=== PATIENT | male | born 1960 | race Caucasian/White ===

== ENCOUNTER 2016-08-13 00:04 | Observation (INO) | payer OTHER ==
[2016-08-13] MEDS ORDERED: NITROGLYCERIN SUBLINGUAL 1/150 0.4 MG TAB SL ONE (00:14)
[2016-08-13] MEDS ORDERED: ASPIRIN 81 MG CHEWABLE TABLETS PO ONE (00:14)
[2016-08-13] MEDS ORDERED: METOPROLOL TARTRATE 25 MG TABLET (FP) PO ONE (00:15)
--- NOTE | 2016-08-13 00:20 | PDOC ---
History of Present Illness - General Chief Complaint: Chest Pain Stated Complaint: CHEST PAIN Time Seen by Provider: 08/13/16 00:14 History Source: Patient Exam Limitations: No Limitations - History of Present Illness Initial Comments: 08/13/16 00:15 55 Y M DM, 1 HOUR OF DULL, CHEST PRESSURE (LIKE SOME ONE HUGGING ME). MILD DYSPMEA BUT NOT CHANGED BY EXERTION. IN ED, IN NAD. HD STABLE (SL[facility] TACHY) STS NO HX OF SIMILAR PAINS. NO HEARTBURN OR BURPING. Past History - Past Medical History Allergies/Adverse Reactions: Allergies Allergy/AdvReac Type Severity Reaction Status Date / Time venom-honey bee Allergy Verified 06/26/15 12:02 [bee venom (honey bee)] Home Medications: Ambulatory Orders Atorvastatin Ca [Lipitor -] 10 mg PO DAILY 06/26/15 Metformin HCl 500 mg PO BID 06/26/15 Sitagliptin Phosphate [Januvia] 100 mg PO DAILY 06/26/15 Diabetes: Yes HTN: Yes Hypercholesterolemia: Yes - Immunization History Immunization Up to Date: No - Psycho/Social/Smoking Cessation Hx Anxiety: No Suicidal Ideation: No Smoking History: Never smoked Hx Alcohol Use: No Drug/Substance Use Hx: No Review of Systems - Review of Systems Able to Perform ROS?: Yes Is the patient limited Algerian proficient: No Constitutional: No: Symptoms Reported HEENTM: No: Symptoms Reported Respiratory: No: Symptoms reported Cardiac (ROS): No: Symptoms Reported ABD/GI: No: Symptoms Reported : No: Symptoms Reported Neurological: No: Symptoms reported *Physical Exam - Vital Signs Last Vital Signs Temp Pulse Resp BP Pulse Ox 99.3 F 110 H 20 129/83 100 08/13/16 00:10 08/13/16 01:14 08/13/16 01:14 08/13/16 01:14 08/13/16 01:14 - Physical Exam General Appearance: Yes: Nourished, Appropriately Dressed. No: Apparent Distress HEENT: positive: Normal ENT Inspection Neck: positive: Supple. negative: Tender, Carotid bruit Respiratory/Chest: positive: Lungs Clear, Normal Breath Sounds. negative: Respiratory Distress Cardiovascular: positive: Regular Rhythm, Regular Rate, Tachycardia Gastrointestinal/Abdominal: positive: Normal Bowel Sounds, Soft. negative: Tender Musculoskeletal: positive: Normal Inspection. negative: Vertebral Tenderness Integumentary: positive: Normal Color. negative: Rash Neurologic: positive: Fully Oriented, Alert, Normal Mood/Affect, Normal Response , Motor Strength 5/5 Heart Score/ECG Review - History History: Moderately suspicious - Electrocardiogram EKG: Normal - Age Age: 45-65 - Risk Factors Risk Factors Heart Score: Yes Hx Diabetes Based on the list above the patient has:: 1-2 risk factors - ECG Intrepretation Rhythm: Regular Rhythm - Kimball Kimball: Normal - P and MT Prominent R with upright T in V1 (true posterior OK): No - QRS Q Wave Present: Yes ED Treatment Course - LABORATORY CBC & Chemistry Diagram: 08/13/16 00:14 08/13/16 00:14 - ADDITIONAL ORDERS Additional order review: Laboratory Results 08/13/16 08/13/16 00:14 00:14 INR 1.10 Sodium 137 Potassium 4.3 Chloride 99 Carbon Dioxide 26 Anion Gap 12 BUN 18 Creatinine 1.2 Creat Clearance w eGFR > 60 Random Glucose 335 H* Calcium 8.5 Magnesium 1.3 L Total Bilirubin 0.8 AST 18 ALT 42 Alkaline Phosphatase 53 Creatine Kinase 70 Troponin I < 0.02 Total Protein 6.9 Albumin 4.1 08/13/16 00:14 RBC 4.30 MCV 89.0 MCHC 35.2 RDW 12.7 MPV 7.6 Neutrophils % 75.3 Lymphocytes % 14.3 Monocytes % 8.5 Eosinophils % 1.4 Basophils % 0.5 - RADIOLOGY Radiology Studies Ordered: Category Date Time Status CHEST X-RAY PORTABLE* [RAD] Stat Radiology 08/13/16 00:14 Taken - Medications Given in the ED: ED Medications Discontinued Medications Generic Name Dose Route Start Last Admin Trade Name Danyq PRN Reason Stop Dose Admin Aspirin 162 mg 08/13/16 00:14 08/13/16 00:33 Asa - PO 08/13/16 00:15 162 mg ONCE ONE Administration Metoprolol Tartrate 25 mg 08/13/16 00:15 08/13/16 00:29 Lopressor - PO 08/13/16 00:16 25 mg ONCE ONE Administration Nitroglycerin 0.4 mg 08/13/16 00:14 08/13/16 00:29 Nitrostat - SL 08/13/16 00:15 0.4 mg ONCE ONE Administration Progress Note - Progress Note Progress Note: CHEST PAIN SUSP FOR ACS ADMIT OBSERVATION D/W PMD *DC/Admit/Observation/Transfer Diagnosis at time of Disposition: Chest pain, rule out acute myocardial infarction - Discharge Dispostion Condition at time of disposition: Stable Admit: Yes
[2016-08-13] MEDS ORDERED: NITROGLYCERIN SUBLINGUAL 1/150 0.4 MG TAB ONE (00:27)
[2016-08-13] MEDS ORDERED: METOPROLOL TARTRATE 50 MG TABLET (FP) ONE (00:27)
[2016-08-13 00:53] LABS: BASOPHIL 0.5 % (0-2.0); EOSINOPHIL 1.4 % (0-4.5); MCH 31.3 pg (25.7-33.7); MCHC 35.2 g/dl (32.0-35.9); MEAN PLT VOLUME 7.6 fl (7.5-11.1); NEUTROPHILS 75.3 % (42.8-82.8); PLATELET COUNT 177 K/MM3 (134-434); RDW 12.7 % (11.9-15.9); WHITE BLOOD COUNT 12.4 K/mm3 (4.0-10.0)
[2016-08-13 01:04] LABS: INR 1.1 (0.82-1.09); PROTHROMBIN TIME (PATIENT) 12.1 SEC (9.98-11.88)
[2016-08-13 01:17] LABS: ALBUMIN 4.1 g/dl (3.4-5.0); ANION GAP 12 (8-16); BILIRUBIN,TOTAL 0.8 mg/dL (0.2-1.0); CALCIUM 8.5 mg/dL (8.5-10.1); CO2 26 mmol/L (21-32); CREATININE 1.2 mg/dL (0.7-1.3); MAGNESIUM 1.3 mg/dL (1.8-2.4); SGOT/AST 18 U/L (15-37); SGPT/ALT 42 U/L (12-78); TOT PROT 6.9 g/dl (6.4-8.2)
[2016-08-13 01:19] LABS: ALK PHOS 53 U/L (45-117); TROPONIN I < 0.02 ng/ml (0.00-0.05)
[2016-08-13 01:28] LABS: GLUCOSE,RANDOM 335 mg/dL (74-106)
[2016-08-13] MEDS ORDERED: HYDROmorphone HCL CARPU-JECT 2 MG/1 ML DISP.SYRIN ONE (02:05)
[2016-08-13] MEDS ORDERED: NITROGLYCERIN SUBLINGUAL 1/150 0.4 MG TAB SL PRN (02:17)
[2016-08-13 03:47] VITALS: BMI 32.6
[2016-08-13] MEDS ORDERED: ACETAMINOPHEN 325 MG TABLET (FP) ONE (07:10)
[2016-08-13] MEDS: INSULIN SLIDING SCALE (NOVOLOG) 1 VIAL SQ SCH ×4 (07:17→22:15)
--- NOTE | 2016-08-13 07:50 | HP ---
CHIEF COMPLAINT: chest pain PCP: Dr Maza HISTORY OF PRESENT ILLNESS: Patient is a 55 y/o male with a past medical history of hypertension, hyperlipidemia, NIDDM. Patient reports awakening early this a.m.with chest pressure and dyspnea upon exertion. Patient describes a pressure as a squeezing sensation to the entire chest,he reports attempting to ambulate at home he noted the dyspnea upon exertion worsened. Patient denies any syncopal episode.patient reports after the of his sister ( prolonged QTC) he was evaluated by a environmental compliance manager 15 years ago, treadmill stress test was negative as per the patient. As a result, he sought evaluation in the emergency department. patient reports intermittent episodes of chest pressure that resolved spontaneously on its own. ER course was notable for: (1) EKG NSR, normal axis, t wave inversion on Lead III (2) troponin 1 WNL (3)nitroglycerin given in ED with relief of chest discomfort Recent Travel:none PAST MEDICAL HISTORY:hypertension hyperlipidemia NIDDM PAST SURGICAL HISTORY: none Social History: none Smoking: none Alcohol:none Drugs: none Family History: father leukemia mother hypertension sister prolonged QTC Allergies venom-honey bee [bee venom (honey bee)] Allergy (Verified 06/26/15 12:02) HOME MEDICATIONS: Home Medications Medication Instructions Recorded Atorvastatin Ca [Lipitor -] 10 mg PO DAILY 06/26/15 Metformin HCl 500 mg PO BID 06/26/15 Sitagliptin Phosphate [Januvia] 100 mg PO DAILY 06/26/15 REVIEW OF SYSTEMS CONSTITUTIONAL: Absent: fever, chills, diaphoresis, generalized weakness, malaise, loss of appetite, weight change HEENT: Absent: rhinorrhea, nasal congestion, throat pain, throat swelling, difficulty swallowing, mouth swelling, ear pain, eye pain, visual changes CARDIOVASCULAR: Absent: chest pain, syncope, palpitations, irregular heart rate, lightheadedness , peripheral edema RESPIRATORY: Absent: cough, shortness of breath, dyspnea with exertion, orthopnea, wheezing, stridor, hemoptysis GASTROINTESTINAL: Absent: abdominal pain, abdominal distension, nausea, vomiting, diarrhea, constipation, melena, hematochezia GENITOURINARY: Absent: dysuria, frequency, urgency, hesitancy, hematuria, flank pain, genital pain MUSCULOSKELETAL: Absent: myalgia, arthralgia, joint swelling, back pain, neck pain SKIN: Absent: rash, itching, pallor HEMATOLOGIC/IMMUNOLOGIC: Absent: easy bleeding, easy bruising, lymphadenopathy, frequent infections ENDOCRINE: Absent: unexplained weight gain, unexplained weight loss, heat intolerance, cold intolerance NEUROLOGIC: Absent: headache, focal weakness or paresthesias, dizziness, unsteady gait, seizure, mental status changes, bladder or bowel incontinence PSYCHIATRIC: Absent: anxiety, depression, suicidal or homicidal ideation, hallucinations. PHYSICAL EXAMINATION Vital Signs - 24 hr 08/13/16 08/13/16 03:00 07:47 Temperature 98.6 F 99.6 F Pulse Rate 88 91 H Respiratory 18 18 Rate Blood Pressure 136/85 151/86 O2 Sat by Pulse 100 97 Oximetry (%) GENERAL: Awake, alert, and fully oriented, in no acute distress. HEAD: Normal with no signs of trauma. EYES: Pupils equal, round and reactive to light, extraocular movements intact, sclera anicteric, conjunctiva clear. No lid lag. EARS, NOSE, THROAT: Ears normal, nares patent, oropharynx clear without exudates. Moist mucous membranes. NECK: Normal range of motion, supple without lymphadenopathy, JVD, or masses. LUNGS: Breath sounds equal, clear to auscultation bilaterally. No wheezes, and no crackles. No accessory muscle use. HEART: Regular rate and rhythm, normal S1 and S2, 3/6 systolic murmur, no rub or gallop. ABDOMEN: Soft, nontender, not distended, normoactive bowel sounds, no guarding, no rebound, no masses. No hepatomegaly or splenomegaly. MUSCULOSKELETAL: Normal range of motion at all joints. No bony deformities or tenderness. No CVA tenderness. UPPER EXTREMITIES: 2+ pulses, warm, well-perfused. No cyanosis. No clubbing. No peripheral edema. LOWER EXTREMITIES: 2+ pulses, warm, well-perfused. No calf tenderness. No peripheral edema. NEUROLOGICAL: Cranial nerves II-XII intact. Normal speech. Normal gait. PSYCHIATRIC: Cooperative. Good eye contact. Appropriate mood and affect. SKIN: Warm, dry, normal turgor, no rashes or lesions noted, normal capillary refill. Laboratory Results - last 24 hr 08/13/16 07:04 POC Glucometer 322 CBC WBC 8.7 K/mm3 (4.0-10.0) 08/13/16 10:00 RBC 4.56 M/mm3 (4.00-5.60) 08/13/16 10:00 Hgb 14.0 GM/dl (11.7-16.9) 08/13/16 10:00 Hct 40.8 % (35.4-49) 08/13/16 10:00 MCV 89.3 fl (80-96) 08/13/16 10:00 MCHC 34.4 g/dl (32.0-35.9) 08/13/16 10:00 RDW 11.8 % (11.9-15.9) L 08/13/16 10:00 Plt Count 175 K/MM3 (134-434) 08/13/16 10:00 MPV 7.4 fl (7.5-11.1) L 08/13/16 10:00 Neutrophils % 67.9 % (42.8-82.8) 08/13/16 10:00 Lymphocytes % 20.8 % (8-40) 08/13/16 10:00 Monocytes % 6.7 % (3.8-10.2) 08/13/16 10:00 Eosinophils % 1.5 % (0-4.5) 08/13/16 10:00 Basophils % 3.1 % (0-2.0) H 08/13/16 10:00 CMP Sodium 132 mmol/L (136-145) L 08/13/16 10:00 Potassium 4.3 mmol/L (3.5-5.1) 08/13/16 10:00 Chloride 99 mmol/L (98-107) 08/13/16 10:00 Carbon Dioxide 27 mmol/L (22-28) 08/13/16 10:00 Anion Gap 6 (8-16) L 08/13/16 10:00 BUN 15 mg/dl (7-18) 08/13/16 10:00 Creatinine 1.0 mg/dl (0.6-1.3) 08/13/16 10:00 Creat Clearance w eGFR > 60 (>60) 08/13/16 10:00 POC Glucometer 347 UNITS (()) 08/13/16 11:38 Random Glucose 336 mg/dl (74-106) H* 08/13/16 10:00 Calcium 9.0 mg/dl (8.4-10.2) 08/13/16 10:00 Phosphorus 3.2 mg/dl (2.5-4.6) 08/13/16 10:00 Magnesium 2.0 mg/dL (1.8-2.4) D 08/13/16 10:00 Total Bilirubin 1.4 mg/dl (0.2-1.0) H 08/13/16 10:00 AST 25 U/L (10-42) 08/13/16 10:00 ALT 29 U/L (10-40) 08/13/16 10:00 Alkaline Phosphatase 46 U/L (32-92) 08/13/16 10:00 Creatine Kinase 45 IU/L (38-174) 08/13/16 07:00 Troponin I < 0.03 ng/ml (0.03-0.50) L 08/13/16 07:00 Total Protein 6.7 g/dl (6.4-8.3) 08/13/16 10:00 Albumin 4.0 g/dl (3.5-5.0) 08/13/16 10:00 Triglycerides 253 mg/dl (35-160) H 08/13/16 10:00 Cholesterol 144 mg/dl 08/13/16 10:00 Total LDL Cholesterol 58 mg/dl 08/13/16 10:00 HDL Cholesterol 35 mg/dl (29-89) 08/13/16 10:00 ASSESSMENT/PLAN: 1) cardiology Chest pain R/O ACS - Continuous cardiac monitoring no dysrhythmias noted - Repeat EKG this a.m. no ischemic changes - Department 3 WNL - Pending echo - Patient does report a squeezing sensation, concern for unstable angina, case discussed with environmental compliance manager Dr Rae, patient will be evaluated by cardiology today Hypertension - Continue losartan Hyperlipidemia - pending lipid profile continue lipitor 2) endo NIDDM - Hold metformin and Januvia fingersticks noted to be elevated start sliding scale with regular insulin coverage - pending hemoglobin A1c F/E/N - low-sodium low-cholesterol diabetic diet - Replete magnesium PPX - oob - protonix dispo: requires 24-hour telemetry observation Visit type - Emergency Visit Emergency Visit: Yes ED Registration Date: 08/13/16 Care time: The patient presented to the Emergency Department on the above date and was hospitalized for further evaluation of their emergent condition. - New Patient This patient is new to me today: Yes Date on this admission: 08/13/16 - Critical Care Critical Care patient: Yes Total Critical Care Time (in minutes): 45 Critical Care Statement: The care of this patient involved high complexity decision making to prevent further life threatening deterioration of the patient 's condition and/or to evalute & treat vital organ system(s) failure or risk of failure.
[2016-08-13] MEDS ORDERED: MAGNESIUM SULFATE 2 GM in SODIUM CHLORIDE 100 ML IVPB ONE (07:57)
[2016-08-13] MEDS ORDERED: ACETAMINOPHEN 325 MG TABLET (FP) PO PRN (08:01)
[2016-08-13] MEDS ORDERED: MAGNESIUM SULF 50% (8.12 MEQ/2 ML-1 GM VIAL) IVPB ONE (08:45)
[2016-08-13 09:11] LABS: CPK(DFH) 45 IU/L (38-174)
[2016-08-13 09:27] LABS: TROPONIN I (DFP) < 0.03 ng/ml (0.03-0.50)
[2016-08-13] MEDS ORDERED: ASPIRIN 325 MG TABLET PO SCH (10:00)
[2016-08-13 11:03] LABS: BASOPHIL 3.1 % (0-2.0); EOSINOPHIL 1.5 % (0-4.5); MCH 30.8 pg (25.7-33.7); MCHC 34.4 g/dl (32.0-35.9); MEAN CELL VOLUME 89.3 fl (80-96); MEAN PLT VOLUME 7.4 fl (7.5-11.1); NEUTROPHILS 67.9 % (42.8-82.8); PLATELET COUNT 175 K/MM3 (134-434); RDW 11.8 % (11.9-15.9); WHITE BLOOD COUNT 8.7 K/mm3 (4.0-10.0)
[2016-08-13 11:28] LABS: ALK PHOS 46 U/L (32-92); ANION GAP 6 (8-16); BILIRUBIN,TOTAL 1.4 mg/dl (0.2-1.0); CHOLESTEROL 144 mg/dl; CO2 27 mmol/L (22-28); PHOSPHOROUS 3.2 mg/dl (2.5-4.6); SGOT/AST 25 U/L (10-42); SGPT/ALT 29 U/L (10-40); TOT PROT 6.7 g/dl (6.4-8.3)
[2016-08-13 11:42] LABS: GLUCOSE,RANDOM 336 mg/dl (74-106)
[2016-08-13] MEDS: VALSARTAN 80 MG TABLET (UD) PO SCH (12:57)
[2016-08-13 14:55] LABS: CPK(DFH) 42 IU/L (38-174)
[2016-08-13 15:34] LABS: TROPONIN I (DFP) < 0.03 ng/ml (0.03-0.50)
--- NOTE | 2016-08-13 17:07 | EKG ---
Test Reason : Blood Pressure : / mmHG Vent. Rate : 115 BPM Atrial Rate : 115 BPM P-R Int : 144 ms QRS Dur : 086 ms QT Int : 318 ms P-R-T Axes : 017 006 022 degrees QTc Int : 439 ms SINUS TACHYCARDIA INFERIOR INFARCT , AGE UNDETERMINED ABNORMAL ECG NO PREVIOUS ECGS AVAILABLE Confirmed by MARILYN JASSO MD ([id number]) on 08/13/2016 5:06:58 PM Referred By: DR JUAREZ Confirmed By:MARILYN JASSO MD
[2016-08-13] MEDS ORDERED: INSULIN (NOVOLOG) ASPART 100 UNITS/ML 10ML VIAL ONE (17:31)
[2016-08-13 18:51] LABS: PH,URINE 5.5 (4.5-8); URINE APPEARANCE Clear; URINE BILIRUBIN Negative (NEGATIVE); URINE GLUCOSE (UA) 2+ (NEGATIVE); URINE KETONE Negative (NEGATIVE); URINE LEUK ESTERASE Negative (NEGATIVE); URINE NITRITE Negative (NEGATIVE); URINE PROTEIN Trace (NEGATIVE); URINE UROBILINOGEN 0.2 E.U/dl (0.2-1.0)
[2016-08-13 19:11] LABS: URINE BLOOD TRACE (NEGATIVE); URINE COLOR YELLOW
--- NOTE | 2016-08-13 20:21 | CON.CARD ---
Cardiology Consult (text) - Consultation Consultation Note: CC: CP 55 y/o male with a past medical history of hyperlipidemia, NIDDM p/w cp. One day of constant chest tightness worse with inspiration and with lying down. 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 Still with mild residual discomfort. No improvement with NTG. No ttp. No orthopnea, pnd, le edema, palps, dizziness, bleeding, transient neurologic symptoms. Allergies, but no recent viral illness. + cough. No f/c/s, n/v/d, congestion, rashes, headache, visual disturbances. PAST MEDICAL HISTORY:hypertension hyperlipidemia NIDDM PAST SURGICAL HISTORY: none Social History: none Smoking: never Alcohol:none Drugs: none Family History: father leukemia mother hypertension sister prolonged QTC Ambulatory Orders Atorvastatin Ca [Lipitor -] 10 mg PO DAILY 06/26/15 Metformin HCl 500 mg PO BID 06/26/15 Sitagliptin Phosphate [Januvia] 100 mg PO DAILY 06/26/15 Current Medications Acetaminophen (Tylenol -) 650 mg PO Q4H PRN PRN Reason: FEVER OR PAIN Aspirin (Asa -) 325 mg PO DAILY [facility] Last Admin: 08/13/16 09:50 Dose: 325 mg Atorvastatin Calcium (Lipitor -) 10 mg PO HS [facility] Insulin Aspart (Novolog Vial Sliding Scale -) 1 vial SQ ACHS [facility] PRN Reason: Protocol Last Admin: 08/13/16 17:16 Dose: 10 units Nitroglycerin (Nitrostat -) 0.4 mg SL Q5M PRN PRN Reason: FOR CHEST PAIN Valsartan (Diovan -) 80 mg PO DAILY [facility] Last Admin: 08/13/16 12:57 Dose: 80 mg Vital Signs - 24 hr 08/13/16 08/13/16 08/13/16 00:10 00:14 01:14 Temperature 99.3 F Pulse Rate 115 H Pulse Rate [ 110 H 110 H Apical] Respiratory 20 22 20 Rate Blood Pressure 153/98 Blood Pressure 155/92 129/83 [Arm] O2 Sat by Pulse 99 99 100 Oximetry (%) 08/13/16 08/13/16 08/13/16 02:15 03:00 07:47 Temperature 98.6 F 99.6 F Pulse Rate 88 91 H Pulse Rate [ 92 H Apical] Respiratory 18 18 18 Rate Blood Pressure 136/85 151/86 Blood Pressure 126/75 [Arm] O2 Sat by Pulse 100 100 97 Oximetry (%) 08/13/16 08/13/16 08/13/16 07:59 09:44 13:57 Temperature 99 F 98.7 F Pulse Rate 87 88 Pulse Rate [ Apical] Respiratory 18 18 20 Rate Blood Pressure 179/89 147/86 Blood Pressure [Arm] O2 Sat by Pulse 97 Oximetry (%) 08/13/16 15:59 Temperature Pulse Rate Pulse Rate [ Apical] Respiratory 20 Rate Blood Pressure Blood Pressure [Arm] O2 Sat by Pulse 97 Oximetry (%) Intake & Output 08/11/16 08/12/16 08/13/16 08/14/16 07:59 07:59 07:59 07:59 Intake Total 900 Balance 900 Weight 215 lb NAD, calm JVD mild elevation?, neck supple RRR nl s1, s2, 2/6 murmur at lsb. ctab nl effort + bs soft nt nd ext with trace edema. no c/c + dp/pt no carotid bruits aaox3 no jaundice, diaphoresis CBC, BMP 08/13/16 10:00 08/13/16 10:00 Laboratory Tests 08/13/16 08/13/16 08/13/16 00:14 07:00 10:00 Magnesium 2.0 D Total Bilirubin 1.4 H AST 25 ALT 29 Alkaline Phosphatase 46 Troponin I < 0.02 < 0.03 L Albumin 4.1 4.0 Triglycerides 253 H Cholesterol 144 Total LDL Cholesterol 58 HDL Cholesterol 35 08/13/16 14:30 Magnesium Total Bilirubin AST ALT Alkaline Phosphatase Troponin I < 0.03 L Albumin Triglycerides Cholesterol Total LDL Cholesterol HDL Cholesterol EKG 08/12: Sinus tach, 115 bpm. Bline inferior q waves EKG 08/13: SR, 84 bpm. Bline inferior q waves. Possible [place] elevation in aVR, and diffuse pr depression. J point elevation in limb leads. tele: SR with pvc's Echo here 07/2016: Mild LVH. Nl lv/rv size/fn. Ab diastolic inflow. CXR: wnl 55 y/o male with a past medical history of hyperlipidemia, NIDDM p/w cp. CP - CE's neg x 3. EKG without acute ischemic changes. Echo without RWMA. However , due to RF's for CAD would pursue inpatient stress test. - Sx's pleuritic and positional. EKG could be c/w pericarditis. Would get ESR, CRP to evaluate for pericarditis. - Diabetes control per pmd - con't asa (decrease to 81 mg/day), statin. CP not responsive to NTG, ok to stay maintain off anti-anginals for now unless stress test positive. HTN - Con't valsartan. maintain sys < 140. Would recommend adding thiazide diuretic. Monitor hyponatremia. - LVH and diastolic dysfunction on echo. Hl - LDL suppressed on low dose atorva
[2016-08-13] MEDS ORDERED: ATORVASTATIN CA 10 MG TABLET (FP) PO SCH (22:00)
[2016-08-13 22:30] LABS: URINE BACTERIA RARE /hpf (NEGATIVE); URINE RBC 0-3 /hpf (0-3); URINE WBC NONE SEEN (3-5)
[2016-08-14] MEDS: INSULIN SLIDING SCALE (NOVOLOG) 1 VIAL SQ SCH ×4 (06:53→13:03)
[2016-08-14] MEDS ORDERED: INSULIN (NOVOLOG) ASPART 100 UNITS/ML 10ML VIAL ONE ×2 (06:56→13:01)
[2016-08-14] MEDS: ASPIRIN 81 MG CHEWABLE TABLETS PO SCH ×2 (12:07→12:52)
[2016-08-14] MEDS: VALSARTAN 80 MG TABLET (UD) PO SCH ×2 (12:07→12:51)
[2016-08-14] MEDS: CHLORTHALIDONE 25 MG TABLET PO SCH ×2 (12:07→13:00)
--- NOTE | 2016-08-14 12:40 | EKG ---
Test Reason : Blood Pressure : / mmHG Vent. Rate : 084 BPM Atrial Rate : 084 BPM P-R Int : 162 ms QRS Dur : 088 ms QT Int : 356 ms P-R-T Axes : 045 009 017 degrees QTc Int : 420 ms NORMAL SINUS RHYTHM INFERIOR INFARCT (CITED ON OR BEFORE 12-AUG-2016) WHEN COMPARED WITH ECG OF 12-AUG-2016 23:57, NO SIGNIFICANT CHANGE WAS FOUND Confirmed by MD HOLDEN MARJORY ([id number]) on 08/14/2016 12:40:30 PM Referred By: MD BREWER Confirmed By:DYLAN HOLDEN MD
[2016-08-14 14:05] LABS: CALCIUM 9.2 mg/dl (8.4-10.2)
[2016-08-14] MEDS ORDERED: glyBURIDE 5 MG TABLET (UD) PO ONE (14:30)
[2016-08-14] MEDS ORDERED: glyBURIDE 2.5 MG TABLET (FP) PO ONE (14:30)
--- NOTE | 2016-08-14 14:42 | PN ---
Progress Note (short form) - Note Progress Note: CC: CP S: No cp, palps, dizziness, sob. stress test today. Vital Signs - 24 hr 08/13/16 08/13/16 08/13/16 15:59 22:54 23:00 Temperature 99.3 F Pulse Rate 107 H Respiratory 20 18 Rate Blood Pressure 153/86 O2 Sat by Pulse 97 97 97 Oximetry (%) 08/14/16 08/14/16 08/14/16 06:00 06:31 07:00 Temperature 97.8 F Pulse Rate 76 Respiratory 19 19 Rate Blood Pressure 134/72 O2 Sat by Pulse 98 98 Oximetry (%) 08/14/16 09:18 Temperature Pulse Rate Respiratory Rate Blood Pressure 131/97 O2 Sat by Pulse Oximetry (%) Intake & Output 08/12/16 08/13/16 08/14/16 08/15/16 07:59 07:59 07:59 07:59 Intake Total 900 Balance 900 Weight 215 lb NAD, calm JVD mild elevation?, neck supple RRR nl s1, s2, 2/6 murmur at lsb. ctab nl effort + bs soft nt nd ext with trace edema. no c/c + dp/pt no carotid bruits aaox3 no jaundice, diaphoresis CBC, BMP 08/13/16 10:00 08/14/16 13:20 Laboratory Tests 08/14/16 08/14/16 13:20 13:20 ESR 45 H C-Reactive Protein 6.7 H EKG 08/12: Sinus tach, 115 bpm. Bline inferior q waves EKG 08/13: SR, 84 bpm. Bline inferior q waves. Possible [place] elevation in aVR, and diffuse pr depression. J point elevation in limb leads. tele: SR with pvc's Echo here 07/2016: Mild LVH. Nl lv/rv size/fn. Ab diastolic inflow. stress test here 07/2016: 9 METS, Asx, no ekg changes. small mild reversible inf perf defect with mild inferoapical HK CXR: wnl 55 y/o male with a past medical history of hyperlipidemia, NIDDM p/w cp. CP - CE's neg x 3. EKG without acute ischemic changes. Echo without RWMA. However , due to RF's --> stress test. --> + for mild ischemia/CAD. Would recommend medical management and close cardiology outpatient follow up. - Sx's pleuritic and positional. EKG could be c/w pericarditis. Would get ESR, CRP to evaluate for pericarditis. - Diabetes control per pmd - con't asa (decrease to 81 mg/day), statin. HTN - Con't valsartan. maintain sys < 140. Would recommend adding thiazide diuretic. Monitor hyponatremia. - LVH and diastolic dysfunction on echo. Hl - LDL suppressed on low dose atorva Would d/c on asa, atorvastatin, chlorthalidone, valsartan. F/u with my office 2 weeks. ADDENDUM: Inflammatory markers (ESR/CRP) came back positive. Spoke with patient on phone and CP has not recurred therefore did not treat for pericarditis. Has f/u with our office.
[2016-08-14 14:50] VITALS: BP 139/78; PULSE 95; TEMP 98.8
[2016-08-14 16:44] LABS: C-REACTIVE PROTEIN 6.7 MG/DL (0.00-0.3)
--- NOTE | 2016-08-21 07:49 | DS ---
Physical Exam: SUBJECTIVE: Patient seen and examined, patient reports feeling well, denies any chest pain or shortness of breath, patient is ambulatory at bedside pt denies any dyspnea upon exertion. OBJECTIVE: Patient is a 55 y/o male with a past medical history of hypertension , hyperlipidemia, NIDDM. Patient reports awakening early this a.m.with chest pressure and dyspnea upon exertion. Patient describes a pressure as a squeezing sensation to the entire chest,he reports attempting to ambulate at home he noted the dyspnea upon exertion worsened. Patient denies any syncopal episode.patient reports after the of his sister ( prolonged QTC) he was evaluated by a coconut boiler 15 years ago, treadmill stress test was negative as per the patient. As a result, he sought evaluation in the emergency department. patient reports intermittent episodes of chest pressure that resolved spontaneously on its own. ER course was notable for: (1) EKG NSR, normal axis, t wave inversion on Lead III (2) troponin 1 WNL (3)nitroglycerin given in ED with relief of chest discomfort PHYSICAL EXAM GENERAL: Awake, alert, and fully oriented, in no acute distress. HEAD: Normal with no signs of trauma. EYES: Pupils equal, round and reactive to light, extraocular movements intact, sclera anicteric, conjunctiva clear. No lid lag. EARS, NOSE, THROAT: Ears normal, nares patent, oropharynx clear without exudates. Moist mucous membranes. NECK: Normal range of motion, supple without lymphadenopathy, JVD, or masses. LUNGS: Breath sounds equal, clear to auscultation bilaterally. No wheezes, and no crackles. No accessory muscle use. HEART: Regular rate and rhythm, normal S1 and S2, 3/6 systolic murmur, no rub or gallop. ABDOMEN: Soft, nontender, not distended, normoactive bowel sounds, no guarding, no rebound, no masses. No hepatomegaly or splenomegaly. MUSCULOSKELETAL: Normal range of motion at all joints. No bony deformities or tenderness. No CVA tenderness. UPPER EXTREMITIES: 2+ pulses, warm, well-perfused. No cyanosis. No clubbing. No peripheral edema. LOWER EXTREMITIES: 2+ pulses, warm, well-perfused. No calf tenderness. No peripheral edema. NEUROLOGICAL: Cranial nerves II-XII intact. Normal speech. Normal gait. PSYCHIATRIC: Cooperative. Good eye contact. Appropriate mood and affect. SKIN: Warm, dry, normal turgor, no rashes or lesions noted, normal capillary refill. CBC WBC 8.7 K/mm3 (4.0-10.0) 08/13/16 10:00 RBC 4.56 M/mm3 (4.00-5.60) 08/13/16 10:00 Hgb 14.0 GM/dl (11.7-16.9) 08/13/16 10:00 Hct 40.8 % (35.4-49) 08/13/16 10:00 MCV 89.3 fl (80-96) 08/13/16 10:00 MCHC 34.4 g/dl (32.0-35.9) 08/13/16 10:00 RDW 11.8 % (11.9-15.9) L 08/13/16 10:00 Plt Count 175 K/MM3 (134-434) 08/13/16 10:00 MPV 7.4 fl (7.5-11.1) L 08/13/16 10:00 Neutrophils % 67.9 % (42.8-82.8) 08/13/16 10:00 Lymphocytes % 20.8 % (8-40) 08/13/16 10:00 Monocytes % 6.7 % (3.8-10.2) 08/13/16 10:00 Eosinophils % 1.5 % (0-4.5) 08/13/16 10:00 Basophils % 3.1 % (0-2.0) H 08/13/16 10:00 ESR 45 mm/hr (0-20) H 08/14/16 13:20 CMP Sodium 133 mmol/L (136-145) L 08/14/16 13:20 Potassium 5.3 mmol/L (3.5-5.1) H D 08/14/16 13:20 Chloride 99 mmol/L (98-107) 08/14/16 13:20 Carbon Dioxide 28 mmol/L (22-28) 08/14/16 13:20 Anion Gap 6 (8-16) L 08/14/16 13:20 BUN 17 mg/dl (7-18) 08/14/16 13:20 Creatinine 1.0 mg/dl (0.6-1.3) 08/14/16 13:20 Creat Clearance w eGFR > 60 (>60) 08/13/16 10:00 POC Glucometer 382 UNITS (()) 08/14/16 13:52 Random Glucose 413 mg/dl (74-106) H* D 08/14/16 13:20 Hemoglobin A1c % 10.7 % (4.8-6.0) H 08/13/16 10:00 Calcium 9.2 mg/dl (8.4-10.2) 08/14/16 13:20 Phosphorus 3.2 mg/dl (2.5-4.6) 08/13/16 10:00 Magnesium 2.0 mg/dL (1.8-2.4) D 08/13/16 10:00 Total Bilirubin 1.4 mg/dl (0.2-1.0) H 08/13/16 10:00 AST 25 U/L (10-42) 08/13/16 10:00 ALT 29 U/L (10-40) 08/13/16 10:00 Alkaline Phosphatase 46 U/L (32-92) 08/13/16 10:00 Creatine Kinase 42 IU/L (38-174) 08/13/16 14:30 Troponin I < 0.03 ng/ml (0.03-0.50) L 08/13/16 14:30 C-Reactive Protein 6.7 MG/DL (0.00-0.3) H 08/14/16 13:20 Total Protein 6.7 g/dl (6.4-8.3) 08/13/16 10:00 Albumin 4.0 g/dl (3.5-5.0) 08/13/16 10:00 Triglycerides 253 mg/dl (35-160) H 08/13/16 10:00 Cholesterol 144 mg/dl 08/13/16 10:00 Total LDL Cholesterol 58 mg/dl 08/13/16 10:00 HDL Cholesterol 35 mg/dl (29-89) 08/13/16 10:00 Laboratory Tests 08/13/16 08/13/16 08/13/16 00:14 07:00 14:30 Troponin I < 0.02 < 0.03 L < 0.03 L HOSPITAL COURSE: Date of Admission:08/13/16 Date of Discharge: 08/21/16 Minutes to complete discharge: 45 Discharge Summary Reason For Visit: CHEST PAIN Condition: Stable - Instructions Diet, Activity, Other Instructions: resume, low sodium diabetic diet continue diovan as prescribed start hctz and glyburide take your fasting blood sugar daily and please keep a daily log please follow up with Dr Maza within 1 week please follow up with Dr Bradford within 2 weeks Referrals: Pebbles Bradford MD [Staff Physician] - Gus Maza MD [Primary Care Provider] - Disposition: HOME - Home Medications Comprehensive Discharge Medication List: Ambulatory Orders Atorvastatin Ca [Lipitor] 10 mg PO DAILY 06/26/15 Metformin HCl 500 mg PO BID 06/26/15 Sitagliptin Phosphate [Januvia] 100 mg PO DAILY 06/26/15 Acetaminophen [Tylenol .Regular Strength -] 650 mg PO Q4H PRN #0 tablet Aspirin [ASA -] 81 mg PO DAILY tab.chew 08/14/16 Chlorthalidone [Hygroton -] 25 mg PO DAILY #30 tablet 08/14/16 Glyburide [Micronase -] 2.5 mg PO DAILY@0700 #30 tablet 08/14/16 Valsartan [Diovan] 80 mg PO DAILY #30 tablet 08/14/16
== END 2016-08-14 15:35 | disposition home or self-care (01) ==
LOC: FER 00:04 → FM/S 02:39
PROVIDERS: ADMIT Internal Medicine; ATTEND Nurse Practitioner Family
DX: R07.9 Chest pain, unspecified (principal); I10 Essential (primary) hypertension; E78.5 Hyperlipidemia, unspecified; E11.9 Type 2 diabetes mellitus without complications
CPT/HCPCS: 36415; 71010-TC; 78452-TC; 80048; 80053; 80061; 81003; 81015; 82550; 83036; 83735; 84100; 84484; 85025; 85610; 85651; 86140; 93005; 93017; 93306-TC; 99285-25; A9502; G0378

== ENCOUNTER 2024-01-17 18:07 | Emergency (ER) | payer OTHER ==
[2024-01-17 18:33] VITALS: BP 126/84; PULSE 88; RESP 16; TEMP 98.6; BMI 32.5
== END 2024-01-17 19:30 | disposition home or self-care (01) ==
LOC: FER 18:07
PROC: 0YQNXZZ Repair Left Foot, External Approach (ICD-10-PCS; principal; 2024-01-17)
DX: S91.312A Laceration without foreign body, left foot, initial encounter (principal); W18.2XXA Fall in (into) shower or empty bathtub, initial encounter
CPT/HCPCS: 99283-25

== ENCOUNTER 2024-04-18 11:56 | Emergency (ER) | payer OTHER ==
[2024-04-18 12:00] VITALS: TEMP 98.6; BMI 31.6
[2024-04-18] MEDS: SODIUM CHLORIDE 1,000 ML IV STA ×2 (12:22→13:33)
[2024-04-18] MEDS ORDERED: metFORMIN HCL 500 MG TABLET (FP) ONE (12:27)
[2024-04-18] MEDS: metFORMIN HCL 500 MG TABLET (FP) PO ONE (12:29)
[2024-04-18 12:32] LABS: HEMATOCRIT 36.3 % (35.4-49); HEMOGLOBIN 12.6 G/dL (11.7-16.9); MCH 31.6 pg (25.7-33.7); MCHC 34.7 g/dl (32.0-35.9); MEAN CELL VOLUME 91.1 fl (80-96); MEAN PLT VOLUME 7.8 fl (7.5-11.1); PLATELET COUNT 200.8 10^3/uL (134-434); RBC 3.99 10^6/uL (4.00-5.60); RDW 13.1 % (11.9-15.9)
[2024-04-18 12:51] LABS: ALK PHOS 80 U/L (45-117); ANION GAP 6 mmol/L (4-13); BILIRUBIN,TOTAL 0.5 mg/dl (0.2-1); CALCIUM 8.8 mg/dl (8.5-10.1); CHLORIDE 108 mmol/L (98-107); CO2 20 mmol/L (21-32); CREATININE 1.8 mg/dl (0.6-1.3); POTASSIUM 4.4 mmol/L (3.5-5.1); SGOT/AST 8 U/L (15-37); SGPT/ALT 12 U/L (7-52); SODIUM 134 mmol/L (136-145); TOT PROT 6.6 g/dl (6.4-8.2)
[2024-04-18 12:53] LABS: GLUCOSE,RANDOM 462 mg/dl (74-106)
[2024-04-18] MEDS ORDERED: amLODIPine BESYLATE 5 MG TABLET (FP) PO ONE (13:23)
[2024-04-18] MEDS ORDERED: amLODIPine BESYLATE 5 MG TABLET (FP) ONE ×2 (13:25→13:28)
[2024-04-18] MEDS ORDERED: LOSARTAN POTASSIUM 25 MG TABLET ONE (13:25)
[2024-04-18] MEDS: amLODIPine BESYLATE 10 MG TABLET (FP) PO ONE (13:33)
[2024-04-18] MEDS: LOSARTAN POTASSIUM 25 MG TABLET PO ONE (13:33)
[2024-04-18] MEDS ORDERED: INSULIN REGULAR HUMAN 100 UNITS/ML *VIAL ONE (14:22)
[2024-04-18] MEDS: INSULIN REGULAR HUMAN 100 UNITS/ML *VIAL SQ ONE (14:29)
[2024-04-18 14:53] VITALS: BP 162/97; PULSE 77; RESP 16
[2024-04-18 15:09] LABS: CALCIUM 8.4 mg/dl (8.5-10.1); CREATININE 1.7 mg/dl (0.6-1.3)
[2024-04-18 15:10] LABS: POTASSIUM 4.4 mmol/L (3.5-5.1)
== END 2024-04-18 15:35 | disposition home or self-care (01) ==
LOC: FER 11:56
PROC: 3E0337Z Introduction of Electrolytic and Water Balance Substance into Peripheral Vein, Percutaneous Approach (ICD-10-PCS; principal; 2024-04-18)
PROC: 3E0337Z Introduction of Electrolytic and Water Balance Substance into Peripheral Vein, Percutaneous Approach (ICD-10-PCS; 2024-04-18)
PROC: 3E013VG Introduction of Insulin into Subcutaneous Tissue, Percutaneous Approach (ICD-10-PCS; 2024-04-18)
DX: E11.65 Type 2 diabetes mellitus with hyperglycemia (principal); R51.9 Headache, unspecified
CPT/HCPCS: 36415; 80048; 80053; 82962; 83930; 85027; 96360; 96361; 96372; 99284-25